=== PATIENT | male | born 1960 | race Caucasian/White ===

== ENCOUNTER → 2024-05-16 07:57 | Outpatient (REF) | payer OTHER, SELFPAY | LOC: MRI 07:57 | PROVIDERS: ATTENDING PHYSICIAN Anesthesiology Pain Medicine; FAMILY PHYSICIAN Internal Medicine | DX: M48.062 Spinal stenosis, lumbar region with neurogenic claudication (principal) | CPT/HCPCS: 72148 ==

== ENCOUNTER → 2024-09-02 11:24 | Outpatient (REF) | payer OTHER, SELFPAY | LOC: PAVMRI 11:24 | PROVIDERS: ATTENDING PHYSICIAN Anesthesiology Pain Medicine; FAMILY PHYSICIAN Internal Medicine; REFERRING PHYSICIAN Internal Medicine Rheumatology | DX: M54.12 Radiculopathy, cervical region (principal) | CPT/HCPCS: 72141 ==

== ENCOUNTER → 2025-07-22 15:39 | Outpatient (REF) | payer OTHER, SELFPAY | LOC: PAVMRI 15:39 | PROVIDERS: ATTENDING PHYSICIAN Specialist; FAMILY PHYSICIAN Internal Medicine | DX: G31.84 Mild cognitive impairment of uncertain or unknown etiology (principal) | CPT/HCPCS: 70551 ==